=== PATIENT | female | born 1945 | race African-American/Black ===

== ENCOUNTER 2018-04-16 12:16 | Inpatient (IN) | payer MEDICARE, MEDICAID ==
[~2018-04-16] VITALS: Ht 162.6 cm; Wt 50.3 kg
[~2018-04-16 12:16] MED LIST: AMIODARONE HCL400 MG PO; COUMADIN2 MG PO; COZAAR25 MG PO; METOPROLOL SUCC25 MG PO; NORVASC5 MG PO
[2018-04-16 12:38] VITALS: BP 134/93
[2018-04-16] MEDS ORDERED: DIOVAN HCT 3201 EAC1 ORAL (13:17)
[2018-04-16] MEDS ORDERED: DIGOXIN250 MCG ORAL (13:17)
[2018-04-16] MEDS ORDERED: Amiodarone 200mg tab ORAL ONE (13:30)
[2018-04-16] MEDS ORDERED: Digoxin 0.5mg/2ml Inj IVP ONE (13:30)
[2018-04-16 13:56] LABS: BASOPHILS % (AUTO) 0.9 % (0.0-2.0); EOSINOPHILS % (AUTO) 0.1 % (0.0-3.0); LYMPHOCYTES % (AUTO) 15.7 % (20.0-45.0); MEAN CORPUSCULAR VOLUME 82 FL (80-99); MONOCYTES % (AUTO) 7.2 % (1.0-10.0); NEUTROPHILS % (AUTO) 76.2 % (45.0-75.0); PLATELET COUNT 248 K/UL (150-450); RED BLOOD COUNT 4.98 M/UL (4.20-5.40); RED CELL DISTRIBUTION WIDTH 12.9 % (11.6-14.8); WHITE BLOOD COUNT 4.3 K/UL (4.8-10.8)
[2018-04-16 14:10] LABS: INR 1.5 (0.9-1.1)
--- NOTE | 2018-04-16 14:32 | Emergency Room Report ---
History of Present Illness General Chief Complaint: General Complaint Source: Patient, Medical Record Present Illness HPI Mrs. Shaver is a healthy 72 yo female with hx of atrial fibrillation who presents with irregular heartbeat and fatigue. Since , Mrs. Shaver has had irregular heartbeat and fatigue. She normally is in regular rhythm and regular rate. She takes amiodarone and warfarin. She was evaluated by her PCP yesterday. Dr. Bauer gave patient digoxin in her office. Patient then developed nausea and vomiting. She was afraid to take her home medications. Dr. Bauer asked her to come to ER. Mrs. Shaver denies syncope or chest pain. No other symptoms. Allergies: Coded Allergies: No Known Allergies (Verified Allergy, Unknown, 10/08/07) Patient History Past Medical History: see triage record, old chart reviewed, AFib Past Surgical History: other - no recent surgeries Social History: Denies: smoking Reviewed Nursing Documentation: PMH: Agreed; PSxH: Agreed Nursing Documentation-PMH Past Medical History: No History, Except For Hx Cardiac Problems: Yes - AFIB Hx Hypertension: Yes Hx Pacemaker: No Hx Cancer: No Hx Gastrointestinal Problems: No Hx Neurological Problems: No Review of Systems Constitutional: Reports: malaise; Denies: sweats All Other Systems: negative except mentioned in HPI Physical Exam Vital Signs Date Time Temp Pulse Resp B/P (MAP) Pulse Ox O2 Delivery O2 Flow Rate FiO2 04/16/18 12:28 97.9 125 18 129/94 97 Room Air Sp02 EP Interpretation: reviewed, normal General Appearance: no apparent distress, alert, GCS 15, non-toxic Head: normocephalic, atraumatic Eyes: bilateral eye normal inspection ENT: hearing grossly normal, normal pharynx, no angioedema, normal voice Neck: full range of motion, supple/symm/no masses Respiratory: chest non-tender, lungs clear, normal breath sounds, speaking full sentences Cardiovascular #1: normal peripheral pulses, no edema, tachycardia, irregularly irregular Gastrointestinal: normal bowel sounds, non tender, soft, no mass, no organomegaly, no peritonitis, no bruit, non-distended, no guarding, no rebound Musculoskeletal: back normal, gait/station normal, normal range of motion, non- tender, calf tenderness Neurologic: alert, oriented x3, responsive, motor strength/tone normal, sensory intact, speech normal Psychiatric: judgement/insight normal, memory normal, mood/affect normal, no suicidal/homicidal ideation Skin: normal color, no rash, warm/dry, well hydrated Lymphatic: no adenopathy Medical Decision Making Diagnostic Impression: Primary Impression: Atrial fibrillation with tachycardic ventricular rate ER Course I spoke with Dr. Bauer. Dr. Bauer explained that Mrs. Shaver has been in sinus rhythm since 2007. He plans to cardiovert patient while she is admitted. Admitted to Dr. Bauer's service. I ordered for patient to have IV digoxin prior to discussion with Dr. Bauer. Her repeat HR is now 88 bpm. Admitted to telemetry in stable condition. Labs Test 04/16/18 13:25 04/16/18 14:18 White Blood Count 4.3 K/UL (4.8-10.8) Red Blood Count 4.98 M/UL (4.20-5.40) Hemoglobin 14.0 G/DL (12.0-16.0) Hematocrit 41.0 % (37.0-47.0) Mean Corpuscular Volume 82 FL (80-99) Mean Corpuscular Hemoglobin 28.0 PG (27.0-31.0) Mean Corpuscular Hemoglobin Concent 34.0 G/DL (32.0-36.0) Red Cell Distribution Width 12.9 % (11.6-14.8) Platelet Count 248 K/UL (150-450) Mean Platelet Volume 6.6 FL (6.5-10.1) Neutrophils (%) (Auto) 76.2 % (45.0-75.0) Lymphocytes (%) (Auto) 15.7 % (20.0-45.0) Monocytes (%) (Auto) 7.2 % (1.0-10.0) Eosinophils (%) (Auto) 0.1 % (0.0-3.0) Basophils (%) (Auto) 0.9 % (0.0-2.0) Prothrombin Time 15.5 SEC (9.30-11.50) Prothromb Time International Ratio 1.5 (0.9-1.1) Lab Results Impression labs WNL Labs Test 04/16/18 13:25 04/16/18 14:18 White Blood Count 4.3 K/UL (4.8-10.8) Red Blood Count 4.98 M/UL (4.20-5.40) Hemoglobin 14.0 G/DL (12.0-16.0) Hematocrit 41.0 % (37.0-47.0) Mean Corpuscular Volume 82 FL (80-99) Mean Corpuscular Hemoglobin 28.0 PG (27.0-31.0) Mean Corpuscular Hemoglobin Concent 34.0 G/DL (32.0-36.0) Red Cell Distribution Width 12.9 % (11.6-14.8) Platelet Count 248 K/UL (150-450) Mean Platelet Volume 6.6 FL (6.5-10.1) Neutrophils (%) (Auto) 76.2 % (45.0-75.0) Lymphocytes (%) (Auto) 15.7 % (20.0-45.0) Monocytes (%) (Auto) 7.2 % (1.0-10.0) Eosinophils (%) (Auto) 0.1 % (0.0-3.0) Basophils (%) (Auto) 0.9 % (0.0-2.0) Prothrombin Time 15.5 SEC (9.30-11.50) Prothromb Time International Ratio 1.5 (0.9-1.1) Sodium Level 138 MMOL/L (136-145) Potassium Level 4.1 MMOL/L (3.5-5.1) Chloride Level 102 MMOL/L (98-107) Carbon Dioxide Level 22 MMOL/L (21-32) Anion Gap 14 mmol/L (5-15) Blood Urea Nitrogen 20 mg/dL (7-18) Creatinine 1.3 MG/DL (0.55-1.30) Estimat Glomerular Filtration Rate mL/min (>60) Glucose Level 91 MG/DL (74-106) Calcium Level 9.4 MG/DL (8.5-10.1) Troponin I 0.008 ng/mL (0.000-0.056) EKG Diagnostic Results EKG Time: 12:40 Other Impression atrial fibrillation RVR ventricular rate 115 bpm nl axis nl QT interval no ST elevation, Diffuse T wave abnormality Last Vital Signs Date Time Temp Pulse Resp B/P (MAP) Pulse Ox O2 Delivery O2 Flow Rate FiO2 04/16/18 13:30 107 04/16/18 12:38 23 Room Air 04/16/18 12:38 97.9 134/93 100 Referrals: NON PHYSICIAN (PCP) Luiza Bonilla MD Apr 16, 2018 14:32
[2018-04-16 14:35] VITALS: BP 139/90
[2018-04-16 14:48] LABS: ANION GAP 14 mmol/L (5-15); BLOOD UREA NITROGEN 20 mg/dL (7-18); CALCIUM 9.4 MG/DL (8.5-10.1); CARBON DIOXIDE 22 MMOL/L (21-32); CHLORIDE 102 MMOL/L (98-107); CREATININE 1.3 MG/DL (0.55-1.30); POTASSIUM 4.1 MMOL/L (3.5-5.1); SODIUM 138 MMOL/L (136-145)
[2018-04-16 14:59] LABS: ALANINE AMINOTRANSFERASE 18 U/L (12-78); ALKALINE PHOSPHATASE 57 U/L (46-116); ASPARTATE AMINO TRANSFERASE 27 U/L (15-37); BILIRUBIN,TOTAL 1.1 MG/DL (0.2-1.0)
[2018-04-16 15:00] LABS: BILIRUBIN,DIRECT 0.4 MG/DL (0.0-0.3)
[2018-04-16] MEDS ORDERED: D5 1/2NS 1,000 ML IV SCH (15:30)
[2018-04-16 16:02] VITALS: BP 117/83
[2018-04-16] MEDS ORDERED: Morphine Sulfate 2mg/ml Inj IVP PRN (17:45)
[2018-04-16] MEDS ORDERED: Zolpidem 5mg tab ORAL PRN (17:45)
[2018-04-16] MEDS ORDERED: Warfarin Sodium 2.5mg ORAL SCH (18:30)
[2018-04-16] MEDS: D5 1/2NS 1,000 ML IV SCH (18:33)
[2018-04-16 20:00] VITALS: BP 113/66
[2018-04-17] VITALS (7 sets, daily range): BP systolic 106–130; BP diastolic 63–76
[2018-04-17 06:54] LABS: INR 1.7 (0.9-1.1)
[2018-04-17 07:10] LABS: ANION GAP 9 mmol/L (5-15); BLOOD UREA NITROGEN 18 mg/dL (7-18); CALCIUM 8.8 MG/DL (8.5-10.1); CARBON DIOXIDE 24 MMOL/L (21-32); CHLORIDE 102 MMOL/L (98-107); CREATININE 1.3 MG/DL (0.55-1.30); SODIUM 135 MMOL/L (136-145)
[2018-04-17 07:20] LABS: BASOPHILS % (AUTO) 0.6 % (0.0-2.0); EOSINOPHILS % (AUTO) 0.1 % (0.0-3.0); HEMATOCRIT 36.8 % (37.0-47.0); LYMPHOCYTES % (AUTO) 15.8 % (20.0-45.0); MEAN CORPUSCULAR VOLUME 82 FL (80-99); NEUTROPHILS % (AUTO) 73.5 % (45.0-75.0); PLATELET COUNT 242 K/UL (150-450); RED BLOOD COUNT 4.51 M/UL (4.20-5.40); RED CELL DISTRIBUTION WIDTH 12.7 % (11.6-14.8); WHITE BLOOD COUNT 4.9 K/UL (4.8-10.8)
[2018-04-17] MEDS ORDERED: Metoprolol Succinate XL 100mg tab ORAL SCH (09:00)
[2018-04-17] MEDS ORDERED: Amiodarone 200mg tab ORAL SCH (09:00)
[2018-04-17] MEDS ORDERED: Losartan 25mg tab ORAL SCH (09:00)
[2018-04-17] MEDS: Irbesartan 150mg tablet ORAL SCH (09:12)
[2018-04-17] MEDS: D5 1/2NS 1,000 ML IV SCH (09:25)
--- NOTE | 2018-04-17 10:00 | History and Physical Report ---
DATE OF ADMISSION: 04/16/2018 TIME SEEN: On 04/17/2018 at 8 a.m. TELEPHONE DIRECTORY DELIVERER: Rafat Art M.D. CHIEF COMPLAINT: Irregular heartbeat. BRIEF HISTORY: This is a 72-year-old female who lives at home, went to Dr. Art's office, found to have rapid AFib. The patient was sent to [facility], diagnosed with above, and admitted to telemetry for further care. Possible pending cardioversion on Thursday. Currently calm in bed, no complaint. No chest pain. No shortness of breath. No nausea, vomiting, or diarrhea. PAST MEDICAL HISTORY: AFib, hypertension, fracture of ankle. PAST SURGICAL HISTORY: Hysterectomy, thyroidectomy. ALLERGIES: Denies. MEDICATIONS: Include warfarin, amlodipine, losartan, metoprolol, amiodarone, Avapro, warfarin, Zofran, morphine, zolpidem, Tylenol. SOCIAL HISTORY: No smoking. Occasional alcohol. No intravenous drug abuse. FAMILY HISTORY: Noncontributory. PHYSICAL EXAMINATION: GENERAL: Calm in bed, oriented x3, in no acute distress. VITAL SIGNS: Temperature 98 degrees, pulse 72, respirations 18, and blood pressure 106/68. CARDIOVASCULAR: No murmur. LUNGS: Distant and clear. ABDOMEN: Bowel sounds positive. Nontender. Nondistended. EXTREMITIES: No cyanosis or edema. NEUROLOGIC: The patient moves all extremities, slightly weak. LABORATORY AND DIAGNOSTIC DATA: Labs at this time show CBC is normal. BMP showed sodium 135 and glucose 127, otherwise normal. Troponin 0.008. INR is 1.7. Urine-tox is digoxin greater than 5. ASSESSMENT: AFib, hypertension. PLAN: Continue previous medications. Blood pressure control. Dietary followup. Dr. Art to follow. We will check CBC and BMP in the morning. We will continue to follow this patient. Devon Gonzalez D.O. DR: Saida JOB#: [id number] CC:
--- NOTE | 2018-04-17 13:37 | General Progress Note ---
Progress Note Progress Note [id number] full consult dictated Ana Maria Lopez MD Apr 17, 2018 13:37
[2018-04-17] MEDS ORDERED: Warfarin Sodium 1mg ORAL ONE (17:00)
[2018-04-17] MEDS ORDERED: Warfarin Sodium 1mg ORAL SCH (17:00)
--- NOTE | 2018-04-17 22:22 | Cardiology Progress Note ---
Assessment/Plan Assessment/Plan The patient is seen and examined, full consult note is dictated. Objective Last 24 Hour Vital Signs Date Time Temp Pulse Resp B/P (MAP) Pulse Ox O2 Delivery O2 Flow Rate FiO2 04/17/18 16:00 60 04/17/18 16:00 98.4 65 18 130/76 (94) 95 04/17/18 12:00 98.3 69 18 117/73 (88) 98 04/17/18 12:00 66 04/17/18 09:53 84 112/72 04/17/18 09:48 84 112/72 (85) 04/17/18 09:12 106/68 04/17/18 09:11 106/68 04/17/18 09:10 72 106/68 04/17/18 09:00 Room Air 04/17/18 08:00 68 04/17/18 08:00 98.6 72 18 106/68 (81) 97 04/17/18 04:00 73 04/17/18 04:00 97.5 73 18 110/71 (84) 96 04/17/18 00:00 98.2 69 18 110/70 (83) 97 04/17/18 00:00 81 Intake and Output 04/16/18 04/17/18 19:00 07:00 Intake Total 50 ml 720 ml Balance 50 ml 720 ml Intake Oral 50 ml IV Total 720 ml # Voids 3 # Bowel Movements 4 Laboratory Tests Test 04/17/18 05:30 04/17/18 16:55 White Blood Count 4.9 K/UL (4.8-10.8) Red Blood Count 4.51 M/UL (4.20-5.40) Hemoglobin 13.0 G/DL (12.0-16.0) Hematocrit 36.8 % (37.0-47.0) L Mean Corpuscular Volume 82 FL (80-99) Mean Corpuscular Hemoglobin 28.7 PG (27.0-31.0) Mean Corpuscular Hemoglobin Concent 35.2 G/DL (32.0-36.0) Red Cell Distribution Width 12.7 % (11.6-14.8) Platelet Count 242 K/UL (150-450) Mean Platelet Volume 7.0 FL (6.5-10.1) Neutrophils (%) (Auto) 73.5 % (45.0-75.0) Lymphocytes (%) (Auto) 15.8 % (20.0-45.0) L Monocytes (%) (Auto) 10.0 % (1.0-10.0) Eosinophils (%) (Auto) 0.1 % (0.0-3.0) Basophils (%) (Auto) 0.6 % (0.0-2.0) Prothrombin Time 17.3 SEC (9.30-11.50) H Prothromb Time International Ratio 1.7 (0.9-1.1) H Sodium Level 135 MMOL/L (136-145) L Potassium Level 4.0 MMOL/L (3.5-5.1) Chloride Level 102 MMOL/L (98-107) Carbon Dioxide Level 24 MMOL/L (21-32) Anion Gap 9 mmol/L (5-15) Blood Urea Nitrogen 18 mg/dL (7-18) Creatinine 1.3 MG/DL (0.55-1.30) Estimat Glomerular Filtration Rate mL/min (>60) Glucose Level 127 MG/DL (74-106) H Calcium Level 8.8 MG/DL (8.5-10.1) Digoxin Level > 5.0 NG/ML (0.9-2.0) *H Urine Random Total Protein 29 MG/DL (< 11.9) H Urine Random Sodium 84 mmol/L (20-110) Urine Creatinine 214.6 MG/DL (30.0-125.0) H Rafat Art MD Apr 17, 2018 22:22
[2018-04-18] VITALS: BP 121/81
[2018-04-18] MEDS: D5 1/2NS 1,000 ML IV SCH ×2 (03:46→20:57)
[2018-04-18 04:00] VITALS: BP 118/85
[2018-04-18 07:42] LABS: BASOPHILS % (AUTO) 0.8 % (0.0-2.0); EOSINOPHILS % (AUTO) 0.4 % (0.0-3.0); HEMATOCRIT 39.2 % (37.0-47.0); HEMOGLOBIN 13.9 G/DL (12.0-16.0); LYMPHOCYTES % (AUTO) 20.7 % (20.0-45.0); MEAN CORPUSCULAR VOLUME 82 FL (80-99); MONOCYTES % (AUTO) 10.6 % (1.0-10.0); NEUTROPHILS % (AUTO) 67.6 % (45.0-75.0); PLATELET COUNT 264 K/UL (150-450); RED CELL DISTRIBUTION WIDTH 12.6 % (11.6-14.8); WHITE BLOOD COUNT 4.6 K/UL (4.8-10.8)
[2018-04-18 07:51] LABS: INR 2.1 (0.9-1.1)
[2018-04-18 07:56] LABS: ANION GAP 9 mmol/L (5-15); BLOOD UREA NITROGEN 11 mg/dL (7-18); CALCIUM 8.7 MG/DL (8.5-10.1); CARBON DIOXIDE 25 MMOL/L (21-32); CHLORIDE 103 MMOL/L (98-107); CREATININE 1.1 MG/DL (0.55-1.30); POTASSIUM 3.7 MMOL/L (3.5-5.1); SODIUM 136 MMOL/L (136-145)
[2018-04-18 08:00] VITALS: BP 118/76
[2018-04-18] MEDS: Irbesartan 150mg tablet ORAL SCH (08:07)
[2018-04-18] MEDS ORDERED: D5 1/2NS 1000ml IV ONE (08:42)
--- NOTE | 2018-04-18 08:55 | General Progress Note ---
Assessment/Plan Problem List: (1) HTN (hypertension) ICD Codes: I10 - Essential (primary) hypertension SNOMED: 55535279 (2) Atrial fibrillation with tachycardic ventricular rate ICD Codes: I48.91 - Unspecified atrial fibrillation SNOMED: 22484365, 36870472 (3) Fracture of ankle Status: unchanged Assessment/Plan bp control pain control cbc bmp am pending cardioversion Subjective Constitutional: Reports: weakness Allergies: Coded Allergies: No Known Allergies (Verified Allergy, Unknown, 10/08/07) All Systems: reviewed and negative except above Subjective calm in bed Objective Last 24 Hour Vital Signs Date Time Temp Pulse Resp B/P (MAP) Pulse Ox O2 Delivery O2 Flow Rate FiO2 04/18/18 08:07 118/76 04/18/18 08:07 58 118/76 04/18/18 08:00 98.3 58 18 118/76 (90) 98 04/18/18 04:00 65 04/18/18 04:00 98.0 61 18 118/85 (96) 96 04/18/18 00:00 58 04/18/18 00:00 98.1 62 18 121/81 (94) 96 04/17/18 21:00 Room Air 04/17/18 20:00 62 04/17/18 20:00 97.5 68 19 127/63 (84) 97 04/17/18 16:00 60 04/17/18 16:00 98.4 65 18 130/76 (94) 95 04/17/18 12:00 98.3 69 18 117/73 (88) 98 04/17/18 12:00 66 04/17/18 09:53 84 112/72 04/17/18 09:48 84 112/72 (85) 04/17/18 09:12 106/68 04/17/18 09:11 106/68 04/17/18 09:10 72 106/68 04/17/18 09:00 Room Air Intake and Output 04/17/18 04/18/18 19:00 07:00 Intake Total 100 ml Balance 100 ml Intake Oral 100 ml # Voids 1 3 Laboratory Tests 04/17/18 16:55: Urine Random Total Protein 29H, Urine Random Sodium 84, Urine Creatinine 214.6H 04/18/18 06:50: White Blood Count 4.6L, Red Blood Count 4.80, Hemoglobin 13.9, Hematocrit 39.2, Mean Corpuscular Volume 82, Mean Corpuscular Hemoglobin 29.0, Mean Corpuscular Hemoglobin Concent 35.6, Red Cell Distribution Width 12.6, Platelet Count 264, Mean Platelet Volume 6.9, Neutrophils (%) (Auto) 67.6, Lymphocytes (%) (Auto) 20.7, Monocytes (%) (Auto) 10.6H, Eosinophils (%) (Auto) 0.4, Basophils (%) ( Auto) 0.8, Prothrombin Time 21.0H, Prothromb Time International Ratio 2.1H, Sodium Level 136, Potassium Level 3.7, Chloride Level 103, Carbon Dioxide Level 25, Anion Gap 9, Blood Urea Nitrogen 11, Creatinine 1.1, Estimat Glomerular Filtration Rate , Glucose Level 123H, Calcium Level 8.7 Height (Feet): 5 Height (Inches): 4.00 Weight (Pounds): 101 General Appearance: alert EENT: normal ENT inspection Neck: normal alignment Cardiovascular: normal peripheral pulses Respiratory/Chest: chest wall non-tender, lungs clear, normal breath sounds Abdomen: normal bowel sounds, non tender, soft Extremities: normal inspection Edema: no edema noted Arm (L), no edema noted Arm (R), no edema noted Leg (L), no edema noted Leg (R), no edema noted Pedal (L), no edema noted Pedal (R), no edema noted Generalized Neurologic: responsive, motor weakness Skin: normal pigmentation, warm/dry Devon Gonzalez DO Apr 18, 2018 08:55
[2018-04-18 12:00] VITALS: BP 102/75
[2018-04-18 16:00] VITALS: BP 112/76
--- NOTE | 2018-04-18 16:35 | Nephrology Progress Note ---
Assessment/Plan Assessment 1.devin 2.afib 3.elevated dig level 4.intractable nausea and vomiting 5.HTN Plan Plan continue current iv monitoring renal function avoid NSAID replace electrolyte as need it Subjective Constitutional: Reports: no symptoms Genitourinary: Reports: no symptoms Neurologic/Psychiatric: Reports: no symptoms Subjective alert and awake her nausea and vomiting has subsided denies any SOb.CP , palpitation Objective Objective Last 24 Hour Vital Signs Date Time Temp Pulse Resp B/P (MAP) Pulse Ox O2 Delivery O2 Flow Rate FiO2 04/18/18 16:00 98.1 68 18 112/76 (88) 97 04/18/18 12:00 58 04/18/18 12:00 98.3 65 18 102/75 (84) 98 04/18/18 09:01 Room Air 04/18/18 08:07 118/76 04/18/18 08:07 58 118/76 04/18/18 08:00 60 04/18/18 08:00 98.3 58 18 118/76 (90) 98 04/18/18 04:00 65 04/18/18 04:00 98.0 61 18 118/85 (96) 96 04/18/18 00:00 58 04/18/18 00:00 98.1 62 18 121/81 (94) 96 04/17/18 21:00 Room Air 04/17/18 20:00 62 04/17/18 20:00 97.5 68 19 127/63 (84) 97 Intake and Output 04/17/18 04/18/18 18:59 06:59 Intake Total 100 ml Balance 100 ml Intake Oral 100 ml # Voids 1 3 Laboratory Tests 04/17/18 16:55: Urine Random Total Protein 29H, Urine Random Sodium 84, Urine Creatinine 214.6H 04/18/18 06:50: White Blood Count 4.6L, Red Blood Count 4.80, Hemoglobin 13.9, Hematocrit 39.2, Mean Corpuscular Volume 82, Mean Corpuscular Hemoglobin 29.0, Mean Corpuscular Hemoglobin Concent 35.6, Red Cell Distribution Width 12.6, Platelet Count 264, Mean Platelet Volume 6.9, Neutrophils (%) (Auto) 67.6, Lymphocytes (%) (Auto) 20.7, Monocytes (%) (Auto) 10.6H, Eosinophils (%) (Auto) 0.4, Basophils (%) ( Auto) 0.8, Prothrombin Time 21.0H, Prothromb Time International Ratio 2.1H, Sodium Level 136, Potassium Level 3.7, Chloride Level 103, Carbon Dioxide Level 25, Anion Gap 9, Blood Urea Nitrogen 11, Creatinine 1.1, Estimat Glomerular Filtration Rate , Glucose Level 123H, Calcium Level 8.7 Height (Feet): 5 Height (Inches): 4.00 Weight (Pounds): 101 Objective HEAD AND NECK: No JVP. No LAD. No thyromegaly. Extraocular movement intact. Pupils are reactive to light and accommodation. LUNGS: Clear to auscultation. CARDIAC: Regular rate and rhythm. S1 and S2. No murmur. No rub. ABDOMEN: Soft, nontender, and nondistended. EXTREMITIES: No edema. No clubbing. No cyanosis. Ana Maria Lopez MD Apr 18, 2018 16:35
[2018-04-18] MEDS ORDERED: Warfarin Sodium 1mg ORAL SCH (17:00)
[2018-04-18 20:00] VITALS: BP 117/85
[2018-04-19] VITALS: BP 110/68
[2018-04-19 04:00] VITALS: BP 115/70
[2018-04-19 07:29] LABS: BASOPHILS % (AUTO) 0.6 % (0.0-2.0); EOSINOPHILS % (AUTO) 0.8 % (0.0-3.0); HEMATOCRIT 39.6 % (37.0-47.0); HEMOGLOBIN 14.1 G/DL (12.0-16.0); LYMPHOCYTES % (AUTO) 27.4 % (20.0-45.0); MEAN CORPUSCULAR VOLUME 81 FL (80-99); MONOCYTES % (AUTO) 10.6 % (1.0-10.0); NEUTROPHILS % (AUTO) 60.7 % (45.0-75.0); PLATELET COUNT 265 K/UL (150-450); RED BLOOD COUNT 4.86 M/UL (4.20-5.40); RED CELL DISTRIBUTION WIDTH 12.3 % (11.6-14.8); WHITE BLOOD COUNT 5.2 K/UL (4.8-10.8)
[2018-04-19 07:34] LABS: INR 2.3 (0.9-1.1)
[2018-04-19 08:00] VITALS: BP 99/62
[2018-04-19 08:00] LABS: ANION GAP 9 mmol/L (5-15); BLOOD UREA NITROGEN 10 mg/dL (7-18); CALCIUM 8.6 MG/DL (8.5-10.1); CARBON DIOXIDE 23 MMOL/L (21-32); CHLORIDE 102 MMOL/L (98-107); CREATININE 1.1 MG/DL (0.55-1.30); POTASSIUM 3.3 MMOL/L (3.5-5.1); SODIUM 134 MMOL/L (136-145)
[2018-04-19] MEDS: Irbesartan 150mg tablet ORAL SCH (08:48)
--- NOTE | 2018-04-19 08:49 | Cardiology Progress Note ---
Assessment/Plan Assessment/Plan 1. Persistent atrial fibrillation, not responsive to medical therapy such as digitalization, all AV iker agents on hold due to digoxin toxicity. Continue warfarin. Plan is to proceed with BE. 2. Hx of hypertension. Subjective Subjective Atrial fibrillation at 60. Objective Last 24 Hour Vital Signs Date Time Temp Pulse Resp B/P (MAP) Pulse Ox O2 Delivery O2 Flow Rate FiO2 04/19/18 04:00 97.5 71 18 115/70 (85) 98 04/19/18 04:00 63 04/19/18 00:00 59 04/19/18 00:00 97.7 76 18 110/68 (82) 98 04/18/18 21:00 Room Air 04/18/18 20:00 59 04/18/18 20:00 98.2 66 18 117/85 (96) 96 04/18/18 16:00 58 04/18/18 16:00 98.1 68 18 112/76 (88) 97 04/18/18 12:00 58 04/18/18 12:00 98.3 65 18 102/75 (84) 98 04/18/18 09:01 Room Air Intake and Output 04/18/18 04/19/18 19:00 07:00 Intake Total 90 ml 420 ml Balance 90 ml 420 ml Intake Oral 30 ml 240 ml IV Total 60 ml 180 ml # Voids 2 3 # Bowel Movements 6 2 Laboratory Tests Test 04/19/18 06:44 White Blood Count 5.2 K/UL (4.8-10.8) Red Blood Count 4.86 M/UL (4.20-5.40) Hemoglobin 14.1 G/DL (12.0-16.0) Hematocrit 39.6 % (37.0-47.0) Mean Corpuscular Volume 81 FL (80-99) Mean Corpuscular Hemoglobin 29.0 PG (27.0-31.0) Mean Corpuscular Hemoglobin Concent 35.6 G/DL (32.0-36.0) Red Cell Distribution Width 12.3 % (11.6-14.8) Platelet Count 265 K/UL (150-450) Mean Platelet Volume 7.0 FL (6.5-10.1) Neutrophils (%) (Auto) 60.7 % (45.0-75.0) Lymphocytes (%) (Auto) 27.4 % (20.0-45.0) Monocytes (%) (Auto) 10.6 % (1.0-10.0) H Eosinophils (%) (Auto) 0.8 % (0.0-3.0) Basophils (%) (Auto) 0.6 % (0.0-2.0) Prothrombin Time 23.3 SEC (9.30-11.50) H Prothromb Time International Ratio 2.3 (0.9-1.1) H Sodium Level 134 MMOL/L (136-145) L Potassium Level 3.3 MMOL/L (3.5-5.1) L Chloride Level 102 MMOL/L (98-107) Carbon Dioxide Level 23 MMOL/L (21-32) Anion Gap 9 mmol/L (5-15) Blood Urea Nitrogen 10 mg/dL (7-18) Creatinine 1.1 MG/DL (0.55-1.30) Estimat Glomerular Filtration Rate mL/min (>60) Glucose Level 104 MG/DL (74-106) Calcium Level 8.6 MG/DL (8.5-10.1) Objective HEENT: normocephalic, atraumatic, bilateral PERRLA< EOMI. Neck: No JVD, no carotid bruit. Respiratory: chest non-tender, lungs clear, normal breath sounds Cardiovascular: irregularly irregular rhythm, normal S1S2, no murmurs, gallops or rubs. Gastrointestinal: normal bowel sounds, non tender, soft, no mass, no organomegaly, no peritonitis, no bruit, non-distended, no guarding, no rebound Musculoskeletal: No edema, clubbing or cyanosis. Rafat Art MD Apr 19, 2018 08:49
[2018-04-19 12:00] VITALS: BP 108/66
[2018-04-19] MEDS: D5 1/2NS 1,000 ML IV SCH (12:12)
--- NOTE | 2018-04-19 14:33 | General Progress Note ---
Assessment/Plan Problem List: (1) HTN (hypertension) ICD Codes: I10 - Essential (primary) hypertension SNOMED: 76959856 (2) Atrial fibrillation with tachycardic ventricular rate ICD Codes: I48.91 - Unspecified atrial fibrillation SNOMED: 32702775, 68392750 (3) Fracture of ankle Status: stable, progressing Assessment/Plan bp control pain control cbc bmp am pending cardioversion Subjective Constitutional: Reports: weakness Allergies: Coded Allergies: No Known Allergies (Verified Allergy, Unknown, 10/08/07) All Systems: reviewed and negative except above Subjective calm in bed Objective Last 24 Hour Vital Signs Date Time Temp Pulse Resp B/P (MAP) Pulse Ox O2 Delivery O2 Flow Rate FiO2 04/19/18 12:00 97.9 69 18 108/66 (80) 98 04/19/18 12:00 69 04/19/18 09:00 Room Air 04/19/18 08:49 69 99/62 04/19/18 08:48 99/62 04/19/18 08:00 98.1 65 18 99/62 (74) 99 04/19/18 08:00 65 04/19/18 04:00 97.5 71 18 115/70 (85) 98 04/19/18 04:00 63 04/19/18 00:00 59 04/19/18 00:00 97.7 76 18 110/68 (82) 98 04/18/18 21:00 Room Air 04/18/18 20:00 59 04/18/18 20:00 98.2 66 18 117/85 (96) 96 04/18/18 16:00 58 04/18/18 16:00 98.1 68 18 112/76 (88) 97 Intake and Output 04/18/18 04/19/18 19:00 07:00 Intake Total 90 ml 420 ml Balance 90 ml 420 ml Intake Oral 30 ml 240 ml IV Total 60 ml 180 ml # Voids 2 3 # Bowel Movements 6 2 Laboratory Tests 04/19/18 06:44: White Blood Count 5.2, Red Blood Count 4.86, Hemoglobin 14.1, Hematocrit 39.6, Mean Corpuscular Volume 81, Mean Corpuscular Hemoglobin 29.0, Mean Corpuscular Hemoglobin Concent 35.6, Red Cell Distribution Width 12.3, Platelet Count 265, Mean Platelet Volume 7.0, Neutrophils (%) (Auto) 60.7, Lymphocytes (%) (Auto) 27.4, Monocytes (%) (Auto) 10.6H, Eosinophils (%) (Auto) 0.8, Basophils (%) ( Auto) 0.6, Prothrombin Time 23.3H, Prothromb Time International Ratio 2.3H, Sodium Level 134L, Potassium Level 3.3L, Chloride Level 102, Carbon Dioxide Level 23, Anion Gap 9, Blood Urea Nitrogen 10, Creatinine 1.1, Estimat Glomerular Filtration Rate , Glucose Level 104, Calcium Level 8.6, Digoxin Level 2.7*H Height (Feet): 5 Height (Inches): 4.00 Weight (Pounds): 101 General Appearance: alert EENT: normal ENT inspection Neck: normal alignment Cardiovascular: normal peripheral pulses Respiratory/Chest: chest wall non-tender, lungs clear, normal breath sounds Abdomen: normal bowel sounds, non tender, soft Extremities: normal inspection Edema: no edema noted Arm (L), no edema noted Arm (R), no edema noted Leg (L), no edema noted Leg (R), no edema noted Pedal (L), no edema noted Pedal (R), no edema noted Generalized Neurologic: responsive, motor weakness Skin: normal pigmentation, warm/dry Devon Gonzalez DO Apr 19, 2018 14:33
[2018-04-19 16:00] VITALS: BP 116/73
--- NOTE | 2018-04-19 16:19 | Nephrology Progress Note ---
Assessment/Plan Assessment 1.devin 2.afib 3.elevated dig level 4.hypokalemia 5.HTN Plan Plan continue current iv monitoring renal function avoid NSAID replace electrolyte as need it Subjective Subjective alert and awake her nausea and vomiting has resolved denies any SOb.CP , palpitation Objective Objective Last 24 Hour Vital Signs Date Time Temp Pulse Resp B/P (MAP) Pulse Ox O2 Delivery O2 Flow Rate FiO2 04/19/18 12:00 97.9 69 18 108/66 (80) 98 04/19/18 12:00 69 04/19/18 09:00 Room Air 04/19/18 08:49 69 99/62 04/19/18 08:48 99/62 04/19/18 08:00 98.1 65 18 99/62 (74) 99 04/19/18 08:00 65 04/19/18 04:00 97.5 71 18 115/70 (85) 98 04/19/18 04:00 63 04/19/18 00:00 59 04/19/18 00:00 97.7 76 18 110/68 (82) 98 04/18/18 21:00 Room Air 04/18/18 20:00 59 04/18/18 20:00 98.2 66 18 117/85 (96) 96 Intake and Output 04/18/18 04/19/18 19:00 07:00 Intake Total 90 ml 420 ml Balance 90 ml 420 ml Intake Oral 30 ml 240 ml IV Total 60 ml 180 ml # Voids 2 3 # Bowel Movements 6 2 Laboratory Tests 04/19/18 06:44: White Blood Count 5.2, Red Blood Count 4.86, Hemoglobin 14.1, Hematocrit 39.6, Mean Corpuscular Volume 81, Mean Corpuscular Hemoglobin 29.0, Mean Corpuscular Hemoglobin Concent 35.6, Red Cell Distribution Width 12.3, Platelet Count 265, Mean Platelet Volume 7.0, Neutrophils (%) (Auto) 60.7, Lymphocytes (%) (Auto) 27.4, Monocytes (%) (Auto) 10.6H, Eosinophils (%) (Auto) 0.8, Basophils (%) ( Auto) 0.6, Prothrombin Time 23.3H, Prothromb Time International Ratio 2.3H, Sodium Level 134L, Potassium Level 3.3L, Chloride Level 102, Carbon Dioxide Level 23, Anion Gap 9, Blood Urea Nitrogen 10, Creatinine 1.1, Estimat Glomerular Filtration Rate , Glucose Level 104, Calcium Level 8.6, Digoxin Level 2.7*H Height (Feet): 5 Height (Inches): 4.00 Weight (Pounds): 101 Objective HEAD AND NECK: No JVP. No LAD. No thyromegaly. Extraocular movement intact. Pupils are reactive to light and accommodation. LUNGS: Clear to auscultation. CARDIAC: Regular rate and rhythm. S1 and S2. No murmur. No rub. ABDOMEN: Soft, nontender, and nondistended. EXTREMITIES: No edema. No clubbing. No cyanosis. Ana Maria Lopez MD Apr 19, 2018 16:19
[2018-04-19] MEDS ORDERED: Warfarin Sodium 1mg ORAL ONE (17:00)
[2018-04-19 20:00] VITALS: BP 98/71
--- NOTE | 2018-04-19 21:15 | Consultation ---
DATE OF CONSULTATION: 04/17/2018 CARDIOLOGY CONSULTATION CONSULTING PHYSICIAN: Rafat Art M.D. REFERRING PHYSICIAN: Devon Gonzalez D.O. REASON FOR CONSULTATION: Management of atrial fibrillation. HISTORY OF PRESENT ILLNESS: The patient is a very unfortunate 72-year-old female with history of paroxysmal atrial fibrillation, who has been on amiodarone, presents to my office with complaints of fatigue and weakness, and was found to be in atrial fibrillation with rapid ventricular response. A rapid digitalization including 1 mg of digoxin was given to her over a period of 24 hours, which caused her heart rate to be better controlled, but she had nausea and vomiting. At my advise, she came to [facility] for further evaluation and management on a pending digoxin level. At the time of arrival to the ED, she continued to be in atrial fibrillation with rapid ventricular response. Her blood pressure was 129/94 mmHg. She was admitted to telemetry unit for further evaluation and management. She did not have any chest pain, shortness of breath, dizziness, or lightheadedness. PAST MEDICAL HISTORY: Atrial fibrillation and history of hypertension. PAST SURGICAL HISTORY: None. ALLERGIES: No known drug allergies. MEDICATIONS: List of medication includes: 1. Amiodarone 200 mg p.o. daily. 2. Digoxin at 0.25 mg x2 one at 6 p.m., the night before admission and the other one at 12 p.m. and the last one at 6 a.m. this morning. 3. Amlodipine 5 mg p.o. daily. 4. Losartan 25 mg p.o. daily. 5. Metoprolol 200 mg p.o. daily. 6. Valsartan and hydrochlorothiazide 320/25 mg one tablet p.o. daily. 7. Warfarin 2 mg one tablet daily. SOCIAL HISTORY: Denies any tobacco, alcohol, or illicit drug use. REVIEW OF SYSTEMS: HEENT: Denies any headache, diplopia, or blurred vision. CONSTITUTIONAL: Denies any fever, chills, night sweats, or weight loss. CARDIOVASCULAR: Denies any chest pain, shortness breath, PND, orthopnea, leg swelling, or palpitation. PULMONARY: Denies any cough, hemoptysis, or wheezing. GASTROINTESTINAL: She had nausea and vomiting. Denies any diarrhea, constipation, or GI bleed. GENITOURINARY: Denies any hematuria, dysuria, or incontinence. NEUROLOGIC: Denies any motor dysfunction, sensory deficit, or altered speech. PHYSICAL EXAMINATION: VITAL SIGNS: Blood pressure was 129/94, pulse of 125, respirations of 18, temperature 97.9 degrees Fahrenheit, and O2 saturation 97% on room air. GENERAL: The patient is a very unfortunate 72-year-old lady, who is in no apparent respiratory distress. HEENT: Atraumatic and normocephalic. Anicteric. Pupils are equal, round, and reactive to light and accommodation. Extraocular muscles intact. NECK: JVP less than 5 cm. No carotid bruit. Carotid upstrokes 2+ bilaterally. CARDIOVASCULAR: Normal S1 and S2. Irregularly irregular rhythm. Tachycardic. No murmurs, gallops, or rubs. LUNGS: Clear to auscultation bilaterally. ABDOMEN: Soft, nontender, and nondistended. No hepatosplenomegaly. Positive bowel sounds. EXTREMITIES: No evidence of edema, clubbing, or cyanosis. LABORATORY FINDINGS: WBC is 123, hemoglobin of 14.0, hematocrit of 41.0, and platelet count is 248,000. Sodium is 138, potassium is 4.1, chloride is 102, bicarbonate is 22, BUN of 20, and creatinine 1.3. Glucose is 91 and calcium is 9.4. Troponin I 0.008. INR was 1.5. Toxicology showed digoxin level of over 5.0. ASSESSMENT AND PLAN: The patient is a very unfortunate 72-year-old female, seen in Cardiology consultation at request of Dr. Gonzalez. 1. Persistent atrial fibrillation. She has failed to respond to digitalization with digoxin, now in digoxin toxicity. The patient has received also 0.5 mg of IV digoxin in the emergency department despite the fact that she had nausea, vomiting, and side effects of digoxin pill that she take on my recommendation. Digoxin level is above 5, we will put a hold on digoxin and amiodarone as well as metoprolol at this time. We will continue to monitor her digoxin level as well as rhythm of the heart. There is no indication for Digibind at this time, as she is not hypotensive and hemodynamically stable. 2. Digoxin toxicity. 3. History of hypertension. We will continue with valsartan and hydrochlorothiazide. I would like to thank, Dr. oGnzalez, for courtesy of this consultation. Rafat Art M.D. DR: TIFFANI JOB#: [id number] CC:
[2018-04-20] VITALS (13 sets, daily range): BP systolic 80–110; BP diastolic 53–74
[2018-04-20] MEDS: D5 1/2NS 1,000 ML IV SCH ×2 (05:47→22:09)
[2018-04-20] MEDS ORDERED: fentaNYL 100 mcg/2 mL IV PRN (06:45)
[2018-04-20] MEDS ORDERED: Atropine Inj 1mg/10ml Syr IV PRN (06:45)
[2018-04-20] MEDS ORDERED: Midazolam 2mg/2ml Inj IVP PRN (06:45)
[2018-04-20] MEDS ORDERED: DiphenhydrAMINE 50mg/ml Inj IVP PRN (06:45)
[2018-04-20 07:02] LABS: INR 2.5 (0.9-1.1)
[2018-04-20 07:13] LABS: BASOPHILS % (AUTO) 1.3 % (0.0-2.0); EOSINOPHILS % (AUTO) 1.3 % (0.0-3.0); HEMATOCRIT 37.1 % (37.0-47.0); HEMOGLOBIN 13.2 G/DL (12.0-16.0); LYMPHOCYTES % (AUTO) 36.7 % (20.0-45.0); MEAN CORPUSCULAR VOLUME 81 FL (80-99); MONOCYTES % (AUTO) 13.9 % (1.0-10.0); NEUTROPHILS % (AUTO) 46.8 % (45.0-75.0); PLATELET COUNT 229 K/UL (150-450); RED BLOOD COUNT 4.58 M/UL (4.20-5.40); RED CELL DISTRIBUTION WIDTH 12.5 % (11.6-14.8); WHITE BLOOD COUNT 4.8 K/UL (4.8-10.8)
[2018-04-20] MEDS ORDERED: Lidocaine 1% MPF 10mg/ml 5ml ONE (07:30)
[2018-04-20] MEDS ORDERED: Propofol 200mg/20ml IV ONE (07:30)
[2018-04-20 07:33] LABS: ANION GAP 9 mmol/L (5-15); BLOOD UREA NITROGEN 11 mg/dL (7-18); CALCIUM 8.3 MG/DL (8.5-10.1); CARBON DIOXIDE 25 MMOL/L (21-32); CHLORIDE 104 MMOL/L (98-107); CREATININE 1.3 MG/DL (0.55-1.30); POTASSIUM 3.6 MMOL/L (3.5-5.1); SODIUM 137 MMOL/L (136-145)
--- NOTE | 2018-04-20 07:36 | Anethesia Preoperative Eval ---
Anesthesia Pre-op PMH/ROS General Date of Evaluation: Apr 20, 2018 Time of Evaluation: 07:33 Anesthesiologist: tony ASA Score: ASA 3 Mallampati Score Class I : Soft palate, uvula, fauces, pillars visible Class II: Soft palate, uvula, fauces visible Class III: Soft palate, base of uvula visible Class IV: Only hard plate visible Mallampati Classification: Class II Surgeon: randy Diagnosis: atrial fibrillation with rapid ventricular response Surgical Procedure: transesophageal echocardiogram, cardioversion Anesthesia History: none Social History: smoking - former smoker, alcohol use Family History: no anesthesia problems Allergies: Coded Allergies: No Known Allergies (Verified Allergy, Unknown, 10/08/07) Medications: see eMAR Patient NPO?: Yes NPO Date: Apr 20, 2018 NPO Time: 0000 Past Medical History Cardiovascular: Reports: HTN Endocrine: Reports: hypothyroidism Hematology/Immune: Reports: other - anticoagulant therapy PSxH Narrative: left ankle fracture, thyroidectomy, hysterectomy Anesthesia Pre-op Phys. Exam Physician Exam Last Vital Signs Date Time Temp Pulse Resp B/P (MAP) Pulse Ox O2 Delivery O2 Flow Rate FiO2 04/20/18 04:00 69 04/20/18 04:00 97.7 18 104/58 (73) 95 04/19/18 21:00 Room Air Constitutional: NAD Neurologic: CN 2-12 intact Cardiovascular: other - irregularly irregular Respiratory: CTA Gastrointestinal: S/NT/ND Airway Exam Mallampati Score: Class II MO: limited Neck: flexible TMD: 2fb ROM: limited Teeth: missing Anesthesia Pre-op A/P Labs Hematology Test 04/20/18 06:15 White Blood Count 4.8 K/UL (4.8-10.8) Red Blood Count 4.58 M/UL (4.20-5.40) Hemoglobin 13.2 G/DL (12.0-16.0) Hematocrit 37.1 % (37.0-47.0) Mean Corpuscular Volume 81 FL (80-99) Mean Corpuscular Hemoglobin 28.7 PG (27.0-31.0) Mean Corpuscular Hemoglobin Concent 35.5 G/DL (32.0-36.0) Red Cell Distribution Width 12.5 % (11.6-14.8) Platelet Count 229 K/UL (150-450) Mean Platelet Volume 7.4 FL (6.5-10.1) Neutrophils (%) (Auto) 46.8 % (45.0-75.0) Lymphocytes (%) (Auto) 36.7 % (20.0-45.0) Monocytes (%) (Auto) 13.9 % (1.0-10.0) H Eosinophils (%) (Auto) 1.3 % (0.0-3.0) Basophils (%) (Auto) 1.3 % (0.0-2.0) Coagulation Test 04/20/18 06:15 Prothrombin Time 24.8 SEC (9.30-11.50) H Prothromb Time International Ratio 2.5 (0.9-1.1) H Chemistry Test 04/20/18 06:15 Sodium Level Pending Potassium Level Pending Chloride Level Pending Carbon Dioxide Level Pending Blood Urea Nitrogen Pending Creatinine Pending Estimat Glomerular Filtration Rate Pending Glucose Level Pending Calcium Level Pending Risk Assessment & Plan Assessment: asa3 Plan: mac Status Change Before Surgery: No Pre-Antibiotics Drug: Ashanti Thomas MD Apr 20, 2018 07:36
--- NOTE | 2018-04-20 07:44 | Pre-Procedure Note/Attestation ---
Pre-Procedure Note/Attestation Complete Prior to Procedure Procedure Narrative: BE with electrical cardioversion Indications for Procedure Pre-Operative Diagnosis: Atrial fibrillation/LA appendage thrombus Attestation I attest that I discussed the nature of the procedure; its benefits; risks and complications; and alternatives (and the risks and benefits of such alternatives ), prior to the procedure, with the patient (or the patient's legal airline security representative). I attest that, if there was a reasonable possibility of needing a blood transfusion, the patient (or the patient's legal airline security representative) was given the [facility] standardized written summary, pursuant to the Jitendra Maury Blood Safety Act ([place] Health and Safety Code # 1645, as amended). I attest that I re-evaluated the patient just prior to the surgery and that there has been no change in the patient's H&P, except as documented below: Rafat Art MD Apr 20, 2018 07:44
--- NOTE | 2018-04-20 07:51 | Cardiology Progress Note ---
Assessment/Plan Assessment/Plan 1. Persistent atrial fibrillation, not responsive to digitalization, all AV iker agents on hold due to digoxin toxicity. Continue warfarin. Plan is to proceed with BE and cardioversion today. 2. Hypertension, well controlled. Subjective Subjective Atrial fibrillation at rate of 69. Denies chest pain or SOB. Objective Last 24 Hour Vital Signs Date Time Temp Pulse Resp B/P (MAP) Pulse Ox O2 Delivery O2 Flow Rate FiO2 04/20/18 04:00 69 04/20/18 04:00 97.7 64 18 104/58 (73) 95 04/20/18 00:00 98.6 77 18 108/74 (85) 95 04/20/18 00:00 73 04/19/18 21:00 Room Air 04/19/18 20:00 98.6 86 16 98/71 (80) 96 04/19/18 20:00 72 04/19/18 16:00 98.1 67 18 116/73 (87) 96 04/19/18 16:00 67 04/19/18 12:00 97.9 69 18 108/66 (80) 98 04/19/18 12:00 69 04/19/18 09:00 Room Air 04/19/18 08:49 69 99/62 04/19/18 08:48 99/62 04/19/18 08:00 98.1 65 18 99/62 (74) 99 04/19/18 08:00 65 Intake and Output 04/19/18 04/20/18 19:00 07:00 Intake Total 60 ml 740 ml Balance 60 ml 740 ml Intake Oral 200 ml IV Total 60 ml 540 ml # Voids 2 2 Laboratory Tests Test 04/20/18 06:15 White Blood Count 4.8 K/UL (4.8-10.8) Red Blood Count 4.58 M/UL (4.20-5.40) Hemoglobin 13.2 G/DL (12.0-16.0) Hematocrit 37.1 % (37.0-47.0) Mean Corpuscular Volume 81 FL (80-99) Mean Corpuscular Hemoglobin 28.7 PG (27.0-31.0) Mean Corpuscular Hemoglobin Concent 35.5 G/DL (32.0-36.0) Red Cell Distribution Width 12.5 % (11.6-14.8) Platelet Count 229 K/UL (150-450) Mean Platelet Volume 7.4 FL (6.5-10.1) Neutrophils (%) (Auto) 46.8 % (45.0-75.0) Lymphocytes (%) (Auto) 36.7 % (20.0-45.0) Monocytes (%) (Auto) 13.9 % (1.0-10.0) H Eosinophils (%) (Auto) 1.3 % (0.0-3.0) Basophils (%) (Auto) 1.3 % (0.0-2.0) Prothrombin Time 24.8 SEC (9.30-11.50) H Prothromb Time International Ratio 2.5 (0.9-1.1) H Sodium Level 137 MMOL/L (136-145) Potassium Level 3.6 MMOL/L (3.5-5.1) Chloride Level 104 MMOL/L (98-107) Carbon Dioxide Level 25 MMOL/L (21-32) Anion Gap 9 mmol/L (5-15) Blood Urea Nitrogen 11 mg/dL (7-18) Creatinine 1.3 MG/DL (0.55-1.30) Estimat Glomerular Filtration Rate mL/min (>60) Glucose Level 98 MG/DL (74-106) Calcium Level 8.3 MG/DL (8.5-10.1) L Objective HEENT: normocephalic, atraumatic, bilateral PERRLA, EOMI. Neck: No JVD, no carotid bruit. Respiratory: chest non-tender, lungs clear, normal breath sounds Cardiovascular: irregularly irregular rhythm, normal S1S2, no murmurs, gallops or rubs. Gastrointestinal: normal bowel sounds, non tender,non-distended, soft,no organomegaly Musculoskeletal: No edema, clubbing or cyanosis. Rafat Art MD Apr 20, 2018 07:50
[2018-04-20] MEDS ORDERED: Metoprolol 5mg/5ml Inj ONE ×3 (08:22→08:44)
--- NOTE | 2018-04-20 08:30 | Brief Operative Note ---
Immediate Post Operative Note Operative Note Chief Complaint: Palpitations Pre-op Diagnosis: Atrial fibrillation/LA appendage thrombus Procedure: BE and DCCV Post-op Diagnosis: Sinus rhythm with APC's No MICHAELA thrombus Surgeon: Rafat Art MD Dough Mixer: None Anesthesia: general Specimen: none Complications: none Condition: stable Fluids: None Estimated Blood Loss: none Drains: none Implant(s) used?: No Rafat Art MD Apr 20, 2018 08:30
[2018-04-20] MEDS: Irbesartan 150mg tablet ORAL SCH ×2 (09:00→10:00)
[2018-04-20] MEDS: Amiodarone 200mg tab ORAL SCH ×3 (09:00→22:08)
--- NOTE | 2018-04-20 09:21 | Immediate Post-Op Evaluation ---
Immediate Post-Op Evalulation Immediate Post-Op Evalulation Procedure: trnsophageal echocardiogram, cardioverion Date of Evaluation: Apr 20, 2018 Time of Evaluation: 08:47 IV Fluids: 200ml 0.9n Blood Products: none Estimated Blood Loss: negligible Blood Pressure Systolic: 80 Blood Pressure Diastolic: 55 Pulse Rate: 69 Respiratory Rate: 18 O2 Sat by Pulse Oximetry: 97 Temperature (Fahrenheit): 97.5 Pain Score (1-10): 0 Nausea: No Vomiting: No Complications none Patient Status: awake, reacts, patent Hydration Status: adequate Drug: Ashanti Thomas MD Apr 20, 2018 09:21
--- NOTE | 2018-04-20 09:24 | 48 Hour Post Anesthesia Eval ---
Post Anesthesia Evaluation Procedure: transesophageal echocardiogram, cardioverion Date of Evaluation: Apr 20, 2018 Time of Evaluation: 08:49 Blood Pressure Systolic: 94 0: 62 Pulse Rate: 70 Respiratory Rate: 18 Temperature (Fahrenheit): 97.5 O2 Sat by Pulse Oximetry: 97 Airway: patent Nausea: No Vomiting: No Pain Intensity: 0 Hydration Status: adequate Cardiopulmonary Status: stable Mental Status/LOC: patient returned to baseline Post-Anesthesia Complications: none Follow-up care needed: N/A Ashanti Dean MD Apr 20, 2018 09:24
--- NOTE | 2018-04-20 15:21 | General Progress Note ---
Assessment/Plan Problem List: (1) HTN (hypertension) ICD Codes: I10 - Essential (primary) hypertension SNOMED: 10843805 (2) Atrial fibrillation with tachycardic ventricular rate ICD Codes: I48.91 - Unspecified atrial fibrillation SNOMED: 86881085, 14812722 (3) Fracture of ankle Status: stable, progressing Assessment/Plan bp control pain control cbc bmp am Subjective Constitutional: Reports: weakness Allergies: Coded Allergies: No Known Allergies (Verified Allergy, Unknown, 10/08/07) All Systems: reviewed and negative except above Subjective calm in bed s/p cardiovert Objective Last 24 Hour Vital Signs Date Time Temp Pulse Resp B/P (MAP) Pulse Ox O2 Delivery O2 Flow Rate FiO2 04/20/18 12:00 97.5 64 16 101/64 (76) 98 04/20/18 12:00 61 04/20/18 10:08 97.7 65 18 95/63 (74) 95 04/20/18 10:00 Room Air 04/20/18 10:00 95/63 04/20/18 09:45 97.9 73 18 99/63 98 Nasal Cannula 3 04/20/18 09:30 71 20 100/66 96 Nasal Cannula 3 04/20/18 09:24 70 18 97 04/20/18 09:21 69 18 97 04/20/18 09:20 67 16 99/65 98 Nasal Cannula 3 04/20/18 09:10 74 15 93/61 97 Nasal Cannula 3 04/20/18 09:00 66 17 88/60 97 Nasal Cannula 3 04/20/18 08:45 77 15 94/62 98 Nasal Cannula 3 04/20/18 08:35 97.5 69 18 80/55 97 Nasal Cannula 3 04/20/18 04:00 69 04/20/18 04:00 97.7 64 18 104/58 (73) 95 04/20/18 00:00 98.6 77 18 108/74 (85) 95 04/20/18 00:00 73 04/19/18 21:00 Room Air 04/19/18 20:00 98.6 86 16 98/71 (80) 96 04/19/18 20:00 72 04/19/18 16:00 98.1 67 18 116/73 (87) 96 04/19/18 16:00 67 Intake and Output 04/19/18 04/20/18 19:00 07:00 Intake Total 60 ml 753 ml Balance 60 ml 753 ml Intake Oral 200 ml IV Total 60 ml 553 ml # Voids 2 2 Laboratory Tests 04/20/18 06:15: White Blood Count 4.8, Red Blood Count 4.58, Hemoglobin 13.2, Hematocrit 37.1, Mean Corpuscular Volume 81, Mean Corpuscular Hemoglobin 28.7, Mean Corpuscular Hemoglobin Concent 35.5, Red Cell Distribution Width 12.5, Platelet Count 229, Mean Platelet Volume 7.4, Neutrophils (%) (Auto) 46.8, Lymphocytes (%) (Auto) 36.7, Monocytes (%) (Auto) 13.9H, Eosinophils (%) (Auto) 1.3, Basophils (%) ( Auto) 1.3, Prothrombin Time 24.8H, Prothromb Time International Ratio 2.5H, Sodium Level 137, Potassium Level 3.6, Chloride Level 104, Carbon Dioxide Level 25, Anion Gap 9, Blood Urea Nitrogen 11, Creatinine 1.3, Estimat Glomerular Filtration Rate , Glucose Level 98, Calcium Level 8.3L, Digoxin Level 2.4H Height (Feet): 5 Height (Inches): 4.00 Weight (Pounds): 111 General Appearance: alert EENT: normal ENT inspection Neck: normal alignment Cardiovascular: normal peripheral pulses, normal rate, regular rhythm Respiratory/Chest: chest wall non-tender, lungs clear, normal breath sounds Abdomen: normal bowel sounds, non tender, soft Extremities: normal inspection Edema: no edema noted Arm (L), no edema noted Arm (R), no edema noted Leg (L), no edema noted Leg (R), no edema noted Pedal (L), no edema noted Pedal (R), no edema noted Generalized Neurologic: responsive, motor weakness Skin: normal pigmentation, warm/dry Devon Gonzalez DO Apr 20, 2018 15:21
[2018-04-20] MEDS ORDERED: Warfarin Sodium 1mg ORAL ONE (17:00)
--- NOTE | 2018-04-20 17:34 | Nephrology Progress Note ---
Assessment/Plan Assessment 1.devin 2.afib 3.elevated dig level 4.hypokalemia 5.HTN Plan Plan continue current iv monitoring renal function avoid NSAID replace electrolyte as need it Subjective Constitutional: Reports: no symptoms HEENT: Reports: no symptoms Neurologic/Psychiatric: Reports: no symptoms Subjective alert and awake her nausea and vomiting has resolved going for cardioversion Objective Objective Last 24 Hour Vital Signs Date Time Temp Pulse Resp B/P (MAP) Pulse Ox O2 Delivery O2 Flow Rate FiO2 04/20/18 16:00 78 04/20/18 16:00 97.3 64 18 91/53 (66) 97 04/20/18 12:00 97.5 64 16 101/64 (76) 98 04/20/18 12:00 61 04/20/18 10:08 97.7 65 18 95/63 (74) 95 04/20/18 10:00 Room Air 04/20/18 10:00 95/63 04/20/18 09:45 97.9 73 18 99/63 98 Nasal Cannula 3 04/20/18 09:30 71 20 100/66 96 Nasal Cannula 3 04/20/18 09:24 70 18 97 04/20/18 09:21 69 18 97 04/20/18 09:20 67 16 99/65 98 Nasal Cannula 3 04/20/18 09:10 74 15 93/61 97 Nasal Cannula 3 04/20/18 09:00 66 17 88/60 97 Nasal Cannula 3 04/20/18 08:45 77 15 94/62 98 Nasal Cannula 3 04/20/18 08:35 97.5 69 18 80/55 97 Nasal Cannula 3 04/20/18 04:00 69 04/20/18 04:00 97.7 64 18 104/58 (73) 95 04/20/18 00:00 98.6 77 18 108/74 (85) 95 04/20/18 00:00 73 04/19/18 21:00 Room Air 04/19/18 20:00 98.6 86 16 98/71 (80) 96 04/19/18 20:00 72 Intake and Output 04/19/18 04/20/18 19:00 07:00 Intake Total 60 ml 753 ml Balance 60 ml 753 ml Intake Oral 200 ml IV Total 60 ml 553 ml # Voids 2 2 Laboratory Tests 04/20/18 06:15: White Blood Count 4.8, Red Blood Count 4.58, Hemoglobin 13.2, Hematocrit 37.1, Mean Corpuscular Volume 81, Mean Corpuscular Hemoglobin 28.7, Mean Corpuscular Hemoglobin Concent 35.5, Red Cell Distribution Width 12.5, Platelet Count 229, Mean Platelet Volume 7.4, Neutrophils (%) (Auto) 46.8, Lymphocytes (%) (Auto) 36.7, Monocytes (%) (Auto) 13.9H, Eosinophils (%) (Auto) 1.3, Basophils (%) ( Auto) 1.3, Prothrombin Time 24.8H, Prothromb Time International Ratio 2.5H, Sodium Level 137, Potassium Level 3.6, Chloride Level 104, Carbon Dioxide Level 25, Anion Gap 9, Blood Urea Nitrogen 11, Creatinine 1.3, Estimat Glomerular Filtration Rate , Glucose Level 98, Calcium Level 8.3L, Digoxin Level 2.4H Height (Feet): 5 Height (Inches): 4.00 Weight (Pounds): 111 Objective HEAD AND NECK: No JVP. No LAD. No thyromegaly. Extraocular movement intact. Pupils are reactive to light and accommodation. LUNGS: Clear to auscultation. CARDIAC: Regular rate and rhythm. S1 and S2. No murmur. No rub. ABDOMEN: Soft, nontender, and nondistended. EXTREMITIES: No edema. No clubbing. No cyanosis. Ana Maria Lopez MD Apr 20, 2018 17:34
[2018-04-21] VITALS: BP 115/69
[2018-04-21 04:00] VITALS: BP 129/75
[2018-04-21 08:00] VITALS: BP 116/63
[2018-04-21] MEDS: Digoxin 0.125mg tab ORAL SCH ×2 (09:00→09:11)
[2018-04-21] MEDS: Irbesartan 150mg tablet ORAL SCH (09:10)
[2018-04-21] MEDS: Amiodarone 200mg tab ORAL SCH (09:10)
[2018-04-21 09:13] LABS: INR 2.1 (0.9-1.1)
[2018-04-21 09:15] LABS: BASOPHILS % (AUTO) 0.7 % (0.0-2.0); EOSINOPHILS % (AUTO) 1.2 % (0.0-3.0); HEMATOCRIT 33.9 % (37.0-47.0); HEMOGLOBIN 11.9 G/DL (12.0-16.0); LYMPHOCYTES % (AUTO) 26.6 % (20.0-45.0); MEAN CORPUSCULAR VOLUME 82 FL (80-99); MONOCYTES % (AUTO) 12.4 % (1.0-10.0); NEUTROPHILS % (AUTO) 59.1 % (45.0-75.0); PLATELET COUNT 209 K/UL (150-450); RED BLOOD COUNT 4.15 M/UL (4.20-5.40); RED CELL DISTRIBUTION WIDTH 12.6 % (11.6-14.8); WHITE BLOOD COUNT 4.7 K/UL (4.8-10.8)
[2018-04-21 09:30] LABS: ANION GAP 11 mmol/L (5-15); BLOOD UREA NITROGEN 13 mg/dL (7-18); CALCIUM 8.5 MG/DL (8.5-10.1); CARBON DIOXIDE 23 MMOL/L (21-32); CHLORIDE 104 MMOL/L (98-107); CREATININE 1.1 MG/DL (0.55-1.30); POTASSIUM 3.6 MMOL/L (3.5-5.1); SODIUM 138 MMOL/L (136-145)
[2018-04-21] MEDS ORDERED: Metoprolol Succinate XL 25mg tab ORAL SCH (09:45)
[2018-04-21 12:00] VITALS: BP 123/76
--- NOTE | 2018-04-21 12:31 | General Progress Note ---
Assessment/Plan Problem List: (1) HTN (hypertension) ICD Codes: I10 - Essential (primary) hypertension SNOMED: 72667438 (2) Atrial fibrillation with tachycardic ventricular rate ICD Codes: I48.91 - Unspecified atrial fibrillation SNOMED: 86806701, 45784318 (3) Fracture of ankle Status: stable, progressing Assessment/Plan bp control pain control dc plan if cardio clear Subjective Constitutional: Reports: weakness Allergies: Coded Allergies: No Known Allergies (Verified Allergy, Unknown, 10/08/07) All Systems: reviewed and negative except above Subjective calm in bed s/p cardiovert Objective Last 24 Hour Vital Signs Date Time Temp Pulse Resp B/P (MAP) Pulse Ox O2 Delivery O2 Flow Rate FiO2 04/21/18 10:26 73 113/61 04/21/18 09:11 81 116/63 04/21/18 09:10 116/63 04/21/18 09:00 Room Air 04/21/18 09:00 81 04/21/18 08:00 98.2 81 20 116/63 (80) 97 04/21/18 04:00 97.7 72 17 129/75 (93) 96 04/21/18 04:00 63 04/21/18 00:00 97.5 70 16 115/69 (84) 96 04/20/18 21:00 Room Air 04/20/18 20:00 97.7 61 17 110/66 (81) 97 04/20/18 20:00 77 04/20/18 16:00 78 04/20/18 16:00 97.3 64 18 91/53 (66) 97 Intake and Output 04/20/18 04/21/18 19:00 07:00 Intake Total 770 ml Balance 770 ml Intake Oral 240 ml IV Total 530 ml # Voids 2 Laboratory Tests 04/21/18 06:22: White Blood Count 4.7L, Red Blood Count 4.15L, Hemoglobin 11.9L, Hematocrit 33.9L, Mean Corpuscular Volume 82, Mean Corpuscular Hemoglobin 28.6, Mean Corpuscular Hemoglobin Concent 35.0, Red Cell Distribution Width 12.6, Platelet Count 209, Mean Platelet Volume 7.4, Neutrophils (%) (Auto) 59.1, Lymphocytes (% ) (Auto) 26.6, Monocytes (%) (Auto) 12.4H, Eosinophils (%) (Auto) 1.2, Basophils (%) (Auto) 0.7, Prothrombin Time 21.2H, Prothromb Time International Ratio 2.1H, Sodium Level 138, Potassium Level 3.6, Chloride Level 104, Carbon Dioxide Level 23, Anion Gap 11, Blood Urea Nitrogen 13, Creatinine 1.1, Estimat Glomerular Filtration Rate , Glucose Level 83, Calcium Level 8.5 04/21/18 06:23: Digoxin Level 1.9 Height (Feet): 5 Height (Inches): 4.00 Weight (Pounds): 111 General Appearance: alert EENT: normal ENT inspection Neck: normal alignment Cardiovascular: normal peripheral pulses, normal rate, regular rhythm Respiratory/Chest: chest wall non-tender, lungs clear, normal breath sounds Abdomen: normal bowel sounds, non tender, soft Extremities: normal inspection Edema: no edema noted Arm (L), no edema noted Arm (R), no edema noted Leg (L), no edema noted Leg (R), no edema noted Pedal (L), no edema noted Pedal (R), no edema noted Generalized Neurologic: responsive, motor weakness Skin: normal pigmentation, warm/dry Devon Gonzalez DO Apr 21, 2018 12:31
[2018-04-21 16:00] VITALS: BP 107/62
--- NOTE | 2018-04-21 16:43 | Discharge Instructions ---
Discharge Instructions Discharge Instructions Follow up with: Dr. Rafat Art next Thursday Services at Discharge: home health services Diet: 2 GM sodium (low sodium) Resume Normal Activity?: Yes Activity: no restrictions For Congestive Heart Failure Reminder Report to your physician any weight gain of 5 pounds or more in one week. Rafat Art MD Apr 21, 2018 16:43
--- NOTE | 2018-04-21 16:57 | Cardiology Progress Note ---
Assessment/Plan Assessment/Plan 1. Persistent atrial fibrillation, not responded to digitalization, s/p successful cardioversion with 200 J to sinus rhythm. Will resume amiodarone 400mg po bid and metoprolol XL until I see her in the office. 2. Hypertension, well controlled, continue losartan. 3. Digoxin toxicity, resolved, level is 1.9. Subjective Subjective s/p successful BE and cardioversion. Sinus rhythm at rate of 72 with first degree AV block. Objective Last 24 Hour Vital Signs Date Time Temp Pulse Resp B/P (MAP) Pulse Ox O2 Delivery O2 Flow Rate FiO2 04/21/18 12:00 98.4 72 21 123/76 (92) 99 04/21/18 10:26 73 113/61 04/21/18 09:11 81 116/63 04/21/18 09:10 116/63 04/21/18 09:00 Room Air 04/21/18 09:00 81 04/21/18 08:00 98.2 81 20 116/63 (80) 97 04/21/18 04:00 97.7 72 17 129/75 (93) 96 04/21/18 04:00 63 04/21/18 00:00 97.5 70 16 115/69 (84) 96 04/20/18 21:00 Room Air 04/20/18 20:00 97.7 61 17 110/66 (81) 97 04/20/18 20:00 77 Intake and Output 04/20/18 04/21/18 19:00 07:00 Intake Total 770 ml Balance 770 ml Intake Oral 240 ml IV Total 530 ml # Voids 2 2D Echo: BE showed normal LV systolic function with no MICHAELA thrombus Laboratory Tests Test 04/21/18 06:22 04/21/18 06:23 White Blood Count 4.7 K/UL (4.8-10.8) L Red Blood Count 4.15 M/UL (4.20-5.40) L Hemoglobin 11.9 G/DL (12.0-16.0) L Hematocrit 33.9 % (37.0-47.0) L Mean Corpuscular Volume 82 FL (80-99) Mean Corpuscular Hemoglobin 28.6 PG (27.0-31.0) Mean Corpuscular Hemoglobin Concent 35.0 G/DL (32.0-36.0) Red Cell Distribution Width 12.6 % (11.6-14.8) Platelet Count 209 K/UL (150-450) Mean Platelet Volume 7.4 FL (6.5-10.1) Neutrophils (%) (Auto) 59.1 % (45.0-75.0) Lymphocytes (%) (Auto) 26.6 % (20.0-45.0) Monocytes (%) (Auto) 12.4 % (1.0-10.0) H Eosinophils (%) (Auto) 1.2 % (0.0-3.0) Basophils (%) (Auto) 0.7 % (0.0-2.0) Prothrombin Time 21.2 SEC (9.30-11.50) H Prothromb Time International Ratio 2.1 (0.9-1.1) H Sodium Level 138 MMOL/L (136-145) Potassium Level 3.6 MMOL/L (3.5-5.1) Chloride Level 104 MMOL/L (98-107) Carbon Dioxide Level 23 MMOL/L (21-32) Anion Gap 11 mmol/L (5-15) Blood Urea Nitrogen 13 mg/dL (7-18) Creatinine 1.1 MG/DL (0.55-1.30) Estimat Glomerular Filtration Rate mL/min (>60) Glucose Level 83 MG/DL (74-106) Calcium Level 8.5 MG/DL (8.5-10.1) Digoxin Level 1.9 NG/ML (0.9-2.0) Objective HEENT: normocephalic, atraumatic, bilateral PERRLA, EOMI. Neck: No JVD, no carotid bruit. Respiratory: chest non-tender, lungs clear, normal breath sounds Cardiovascular: Regular rate and rhythm, normal S1S2, no murmurs, gallops or rubs. Gastrointestinal: normal bowel sounds, non tender,non-distended, soft,no organomegaly Musculoskeletal: No edema, clubbing or cyanosis. Rafat Art MD Apr 21, 2018 16:57
[2018-04-21] MEDS ORDERED: Warfarin Sodium 1mg ORAL ONE (17:00)
--- NOTE | 2018-04-21 20:45 | Nephrology Progress Note ---
Assessment/Plan Assessment 1.devin 2.afib 3.elevated dig level 4.hypokalemia 5.HTN Plan Plan continue current iv monitoring renal function avoid NSAID replace electrolyte as need it Subjective Subjective alert and awake her nausea and vomiting has resolved pt was seen this morning at 8:30 am Objective Objective Last 24 Hour Vital Signs Date Time Temp Pulse Resp B/P (MAP) Pulse Ox O2 Delivery O2 Flow Rate FiO2 04/21/18 16:00 68 04/21/18 16:00 98.2 67 20 107/62 (77) 96 04/21/18 12:00 66 04/21/18 12:00 98.4 72 21 123/76 (92) 99 04/21/18 10:26 73 113/61 04/21/18 09:11 81 116/63 04/21/18 09:10 116/63 04/21/18 09:00 Room Air 04/21/18 09:00 81 04/21/18 08:00 77 04/21/18 08:00 98.2 81 20 116/63 (80) 97 04/21/18 04:00 97.7 72 17 129/75 (93) 96 04/21/18 04:00 63 04/21/18 00:00 97.5 70 16 115/69 (84) 96 04/20/18 21:00 Room Air Intake and Output 04/20/18 04/21/18 19:00 07:00 Intake Total 770 ml Balance 770 ml Intake Oral 240 ml IV Total 530 ml # Voids 2 Laboratory Tests 04/21/18 06:22: White Blood Count 4.7L, Red Blood Count 4.15L, Hemoglobin 11.9L, Hematocrit 33.9L, Mean Corpuscular Volume 82, Mean Corpuscular Hemoglobin 28.6, Mean Corpuscular Hemoglobin Concent 35.0, Red Cell Distribution Width 12.6, Platelet Count 209, Mean Platelet Volume 7.4, Neutrophils (%) (Auto) 59.1, Lymphocytes (% ) (Auto) 26.6, Monocytes (%) (Auto) 12.4H, Eosinophils (%) (Auto) 1.2, Basophils (%) (Auto) 0.7, Prothrombin Time 21.2H, Prothromb Time International Ratio 2.1H, Sodium Level 138, Potassium Level 3.6, Chloride Level 104, Carbon Dioxide Level 23, Anion Gap 11, Blood Urea Nitrogen 13, Creatinine 1.1, Estimat Glomerular Filtration Rate , Glucose Level 83, Calcium Level 8.5 04/21/18 06:23: Digoxin Level 1.9 Height (Feet): 5 Height (Inches): 4.00 Weight (Pounds): 111 Objective HEAD AND NECK: No JVP. No LAD. No thyromegaly. Extraocular movement intact. Pupils are reactive to light and accommodation. LUNGS: Clear to auscultation. CARDIAC: Regular rate and rhythm. S1 and S2. No murmur. No rub. ABDOMEN: Soft, nontender, and nondistended. EXTREMITIES: No edema. No clubbing. No cyanosis. Ana Maria Lopez MD Apr 21, 2018 20:45
--- NOTE | 2018-04-21 21:45 | Operative Note - Dictated ---
DATE OF OPERATION: 04/20/2018 ATTENDING SURGEON: Rafat Art M.D., .A.C.C. PROCEDURE: Electrocardioversion. PREOPERATIVE DIAGNOSIS: Persistent atrial fibrillation, refractory to medical therapy including digoxin and amiodarone and metoprolol. POSTOPERATIVE FINDINGS: Successful synchronized DC cardioversion of atrial fibrillation to sinus rhythm with frequent atrial premature complexes, using 200 joules of biphasic energy. DESCRIPTION OF PROCEDURE: Following transesophageal echocardiography, which ruled out left atrial appendage thrombus, while the patient was in deep anesthesia at the presence of anesthesiologist, while the anteroposterior pad was in place, 200 joules of synchronized energy were applied to the patient, which successfully converted the patient's rhythm to sinus rhythm with frequent atrial premature complexes. The patient tolerated the procedure well without any complications. CONCLUSION: Successful synchronized electrocardioversion of atrial fibrillation to sinus rhythm. Rafat Art M.D. DR: SHALOM JOB#: [id number] CC:
--- NOTE | 2018-04-21 22:15 | Procedure Note ---
DATE OF PROCEDURE: 04/20/2018 ATTENDING SURGEON: Rafat Art M.D., .A.C.C. PROCEDURE: Transesophageal echocardiography. PREOPERATIVE DIAGNOSES: Cardiac thrombus in preparation for cardioversion. POSTOPERATIVE FINDINGS: 1. No evidence of left atrial appendage thrombus. 2. No spontaneous echo contrast within the left atrial cavity. 3. Good emptying velocity measured at 0.7 meter/second. 4. Normal left ventricular systolic function. PLAN AND RECOMMENDATION: In phase of clean left atrial appendage and left atrial cavity, we proceeded with synchronized electrical cardioversion of atrial fibrillation. DESCRIPTION OF PROCEDURE: The risks, benefits, and alternatives of the procedure was explained to the patient in detail, the patient agreed to the procedure and signed the informed consent. She was brought down to the OR room #2 in a fasting state and was placed in the left lateral decubitus position. At the presence of anesthesiologist and using propofol as the general anesthetic agent, the transesophageal echocardiography probe was advanced through the mouth and placed in the midesophageal area. It is just about 35 cm from the mouth orifice. After review of the cardiac structure, the probe was removed. The patient tolerated the procedure well without any complications. CONCLUSION: No evidence of left atrial appendage thrombus in a patient with atrial fibrillation. Rafat Art M.D. DR: SHALOM JOB#: [id number] CC:
--- NOTE | 2018-04-22 08:41 | Discharge Summary ---
Discharge Summary Discharge Summary _ DATE OF ADMISSION: April 16, 2018 DATE OF DISCHARGE: April 21, 2018 DISCHARGED BY: Dr. Devon Gonzalez CONSULTANTS: Dr. Rafat Lopez BRIEF HOSPITAL COURSE: Patient is a 72-year-old male, with history of paroxysmal atrial fibrillation, who has been on amiodarone, presented to cardiology office for complaints of fatigue and weakness. She was found to be in atrial fibrillation with rapid ventricular response. She was given digoxin 1 mg. She was advised to go to [facility] ER for further evaluation. On evaluation at ED, she continued to be in atrial fibrillation with rapid ventricular response. Blood pressure was 129/94 mmHg. Troponin was negative. She was noted to have elevated digoxin level greater than 5. Her repeat EKG showed atrial fibrillation with ventricular rate of 70 bpm with normal axis and nonspecific T wave pattern. She was given Zofran and D5 half NS. She was then admitted for further evaluation and management. She was followed by Dr. Art. Digoxin and amiodarone was placed on hold as well as metoprolol. Digoxin level was monitored. There was no indication for Digibind, as she was not hypotensive and was hemodynamically stable. She was given irbesartan and Norvasc. She had elevated creatinine to 1.3, BUN of 20. Renal function was monitored. Grid Inspector was consulted. She was continued on IV fluids. Advised avoid nephrotoxics. Digoxin level eventually normalized. Nausea and vomiting resolved. She was given potassium supplements. On 04/20/2018, she underwent transesophageal echocardiogram. There was no evidence of left atrial appendage thrombus. No spontaneous echo contrast within the left atrial cavity. Good emptying velocity measured at 0.7 m/s. Normal left ventricular systolic function. She then underwent synchronized electrocardioversion. She successfully converted to sinus rhythm. She tolerated procedure well. She was restarted on metoprolol and amiodarone. She was given Coumadin for anticoagulation. She was eventually cleared for discharge home to follow-up as outpatient. FINAL DIAGNOSES: Persistent atrial fibrillation, not responsive to digitalization, status post successful cardioversion Hypertension Digoxin toxicity, resolved Acute kidney injury Hypokalemia Fracture of ankle DISPOSITION: Patient was discharged home with home health. DISCHARGE MEDICATIONS: Refer to Discharge Medication List. DISCHARGE INSTRUCTIONS: Follow up in a week. Follow-up with Dr. Art on April 26, 2018 I have been assigned to dictate discharge summary on this account, and I was not involved in the patient's management. Denita Moreno NP Apr 22, 2018 08:41
== END 2018-04-21 18:14 | disposition home or self-care (01) | DRG 309 ==
LOC: EMR 13:00 → 2E 13:50 → EDBEDREQ 14:37
DX: I48.2 Chronic atrial fibrillation (principal); N17.9 Acute kidney failure, unspecified; I10 Essential (primary) hypertension; R11.2 Nausea with vomiting, unspecified; T46.0X5A Adverse effect of cardiac-stimulant glycosides and drugs of similar action, initial encounter; E87.6 Hypokalemia; E89.0 Postprocedural hypothyroidism; Y83.8 Other surgical procedures as the cause of abnormal reaction of the patient, or of later complication, without mention of misadventure at the time of the procedure; Z79.01 Long term (current) use of anticoagulants; S82.899D Other fracture of unspecified lower leg, subsequent encounter for closed fracture with routine healing; X58.XXXD Exposure to other specified factors, subsequent encounter
CPT/HCPCS: 36415; 80048; 80053; 80162; 82044; 82248; 82570; 84300; 84484; 85025; 85610; 93005; 93312; 96374; 96375; 97803; 99285; J2250; J2405; J8499